=== PATIENT | male | born 1995 | race Caucasian/White ===

== ENCOUNTER 2020-09-03 10:08 | Emergency (ER) | payer SELFPAY ==
[2020-09-03 10:09] VITALS: BP 127/85; PULSE 92; RESP 18; TEMP 37; O2SAT 100; BMI 25.2
--- NOTE | 2020-09-03 10:14 | XRR_ITS ---
PROCEDURE INFORMATION: Exam: XR Chest Exam date and time: 09/03/2020 10:20 AM Age: 25 years old Clinical indication: Chest pressure; Patient HX: Chest pain TECHNIQUE: Imaging protocol: XR of the chest. Views: 1 view. COMPARISON: No relevant prior studies available. FINDINGS: Lungs: Lungs are clear bilaterally. Pleural spaces: No pleural effusion. No pneumothorax. Heart/Mediastinum: The cardiac silhouette and mediastinal contours are unremarkable. Bones/joints: Unremarkable for age. XR/XR chest 1V portable [id number] IMPRESSION: No acute cardiopulmonary process.
--- NOTE | 2020-09-03 10:25 | ED_ITS ---
HPI - Anxiety General: Chief Complaint: Anxiety Stated Complaint: CHEST PAIN Time Seen by Provider: 09/03/20 10:08 History of Present Illness: HPI narrative: 5-year-old male who was at work he began has some chest discomfort he was breathing rapidly severe tachypnea when EMS picked him up he is also having some pedal and hand muscular contractions he was given Ativan in the field for much all the symptoms resolved he has some mild chest discomfort with deep inhalation he denies any fever sweats chills no productive cough. MD complaint: anxiety and shortness of breath Onset (ago): minute(s) Symptoms: dyspnea, extremity numbness/tingling, sense of impending doom and muscle cramps Severity: moderate Quality: intermittent and improving Place: work Provoking factors: work/job stress Relieving factors: medication Associated symptoms: Reports chest pain; Deny anorexia, chills, confusion, diaphoresis, fever(s), headache(s), malaise, nausea, palpitations, short of breath, syncope, vomiting or weakness Review of Systems Const: Denies: fever(s), chills, malaise or diaphoresis ENMT: Denies: throat pain, ear or mastoid pain, nasal discharge or nasal congestion Card: Reports: chest pain; Denies: palpitations or syncope Resp: Denies: dyspnea, productive cough or non-productive cough GI: Denies: nausea or vomiting : Denies: flank pain, dysuria, urinary frequency or urinary urgency Skin/Breast: Denies: rash or pruritus Neuro: Denies: headache(s) or confusion Physical Exam Const: COMMON NORMALS: no acute distress GENERAL APPEARANCE: cooperative and comfortable ORIENTATION/CONSCIOUSNESS: Yes awake, Yes oriented to person, Yes oriented to place and Yes oriented to time HENMT: COMMON NORMALS: normocephalic, atraumatic, hearing grossly normal bilaterally and external ears normal HEAD & SCALP: normocephalic and atraumatic EXTERNAL EAR: Yes external ears normal Neck/C-Spine: COMMON NORMALS: no JVD Resp: COMMON NORMALS: normal respiratory effort, No retractions, No use of accessory muscles and clear to auscultation bilaterally AUSCULTATION: clear to auscultation bilaterally Cardio: COMMON NORMALS: no JVD, regular rate, regular rhythm and No murmurs present (Cardio) RATE: regular rate RHYTHM: regular rhythm GI: COMMON NORMALS: Soft to palpation and No hepatosplenomegaly present AUSCULTATION: Yes normoactive bowel sounds PALPATION: Yes Soft to palpation, No Tenderness to palpation present (GI), No Guarding due to palpation present (GI) and Yes No hepatosplenomegaly present Extremity: COMMON NORMALS: normal to inspection, capillary refill normal, no clubbing, cyanosis or edema, no calf tenderness and no pedal edema Neuro: SENSORIUM/ORIENTATION: Yes oriented to person, Yes oriented to place and Yes oriented to time Skin: COMMON NORMALS: no rashes or lesions noted GENERAL SKIN EXAM: no rashes or lesions noted Course Vital Signs: Vital signs: Vital Signs Temperature 98.6 F 09/03/20 12:01 Pulse Rate 92 09/03/20 10:09 Respiratory Rate 18 09/03/20 12:01 Blood Pressure 127/85 09/03/20 10:09 Pulse Oximetry 100 09/03/20 12:01 MDM - Anxiety MDM Narrative: Medical decision making narrative: Patient parameters all the time he arrived here much improved now on exam is unremarkable. EKG is unremarkable we will go ahead and discharge the patient home he is somewhat sedated from the Ativan he states he feels much better he has no further symptoms did discuss here whether and reviewing history from the EMT crew, it sounds like he was hyperventilating got some spasms in his. hands and feet those have all resolved recheck if has problems. Lab Data: Labs: Lab Results 09/03/20 09/03/20 Range/Units 10:40 10:40 WBC 7.3 (4.0-10.0) 10^3/ uL RBC 4.67 (4.1-5.3) 10^6/u L Hgb 13.9 (11.7-16.6) g/dL Hct 41.2 L (42.0-52.0) % MCV 88.2 (80-94) fL MCH 29.8 (28.0-34.0) pg MCHC 33.7 (30.0-36.0) g/dL RDW 13.0 (12.1-15.1) % Plt Count 211 (130-400) 10^3/c mm MPV 10.3 (7.4-10.4) fL Neut % (Auto) 75.1 % Lymph % (Auto) 14.7 % [place] % (Auto) 7.9 % Eos % (Auto) 1.5 % Baso % (Auto) 0.4 % Neut # (Auto) 5.50 (1.8-7.7) 10^3/u L Lymph # (Auto) 1.1 (0.8-4.8) 10^3/u L [place] # (Auto) 0.6 (0.2-0.9) 10^3/u L Eos # (Auto) 0.1 (0.0-0.8) 10^3/u L Baso # (Auto) 0.0 (0.0-0.1) 10^3/u L Nucleated RBC % (a uto) 0 % Nucleated RBCs # 0.0 /100WBC Sodium 136 (136-145) mmol/L Potassium 3.7 (3.5-5.1) mmol/L Chloride 100 (98-107) mmol/L Carbon Dioxide 26 (22-29) mmol/L Anion Gap 13.7 (5-19) BUN 12 (6-20) mg/dL Creatinine 0.9 (0.7-1.2) mg/dL GFR Calculation 103.7 (90-130) mL/min Glucose 92 (65-115) mg/dL Calculated Osmolal ity 281 L (285-295) mOsm/k g Calcium 9.0 (8.5-10.5) mg/dL Discharge Plan Discharge Patient Disposition: Home Clinical Impression: Acute anxiety, Hyperventilation Condition: Stable Prescriptions: No Action Ativan 0.5 mg tablet 0.5 mg PO Q8H PRN (Reason: anxiety) Qty: 7 RF: 0 Advil 200 mg Tablet 200 - 400 mg PO Q6H PRN (Reason: Pain) RF: 0 Discharge Orders: Discharge ED (Routine); Ordered 09/03/20 Ordered By: Tahir Song Discharge Diet: Usual diet Discharge Activity: Resume usual activity Patient Instructions: Opioid Safety Coding Level of Care Code ED Locomotive Pipe Fitter for Damien Fwd Exam Comprehensive
[2020-09-03 10:44] LABS: Basophils % 0.4 %; Eosinophils # 0.1 10^3/uL (0.0-0.8); Eosinophils % 1.5 %; Hematocrit 41.2 % (42.0-52.0); Hemoglobin 13.9 g/dL (11.7-16.6); Lymphocytes # 1.1 10^3/uL (0.8-4.8); Lymphocytes % 14.7 %; Mean Corpuscular HGB Conc 33.7 g/dL (30.0-36.0); Mean Corpuscular Hemoglobin 29.8 pg (28.0-34.0); Mean Corpuscular Volume 88.2 fL (80-94); Mean Platelet Volume 10.3 fL (7.4-10.4); Monocytes # 0.6 10^3/uL (0.2-0.9); Monocytes % 7.9 %; Neutrophils % 75.1 %; Nucleated Red Blood Cells % 0 %; Platelet Count 211 10^3/cmm (130-400); Red Blood Count 4.67 10^6/uL (4.1-5.3); White Blood Count 7.3 10^3/uL (4.0-10.0)
[2020-09-03 11:04] LABS: Blood Urea Nitrogen 12 mg/dL (6-20); Carbon Dioxide 26 mmol/L (22-29); Chloride 100 mmol/L (98-107); Glomerular Filtration Rate 103.7 mL/min (90-130); Glucose 92 mg/dL (65-115); Osmolality Calculated 281 mOsm/kg (285-295); Sodium 136 mmol/L (136-145)
[2020-09-03 11:06] LABS: Anion Gap 13.7 (5-19); Potassium 3.7 mmol/L (3.5-5.1)
[2020-09-03 12:01] VITALS: RESP 18; TEMP 37; O2SAT 100
== END 2020-09-03 12:01 | disposition home or self-care (01) ==
PROVIDERS: Emergency Provider Family Medicine
DX: F41.9 Anxiety disorder, unspecified (principal); R06.4 Hyperventilation
CPT/HCPCS: 71045; 80048; 85025; 99282

== ENCOUNTER 2020-09-04 18:33 | Emergency (ER) | payer SELFPAY ==
--- NOTE | 2020-09-04 18:48 | ECG_ITS ---
[facility] Test Date: 2020-09-04 Pat Name: Magnus Campbell Department: Room: Gender: Male Senior Revenue Accountant: : 1995 Requested By: Celia Grijalva Order Number: [id number] Lemus MD: Chelsea Vargas M.D. Measurements Intervals [place] Rate: 107 P: 84 TN: 119 QRS: 77 QRSD: 90 T: 55 QT: 327 QTc: 438 Interpretive Statements SINUS TACHYCARDIA WITH SHORT TN INTERVAL POSSIBLE LEFT ATRIAL ENLARGEMENT [-0.1mV P WAVE IN V1/V2] ABNORMAL RHYTHM ECG No previous ECG available for comparison Electronically Signed On 09-04-2020 21:03:44 CDT by Chelsea Vargas M.D. [email or web address] [email or web address]/[id number]
--- NOTE | 2020-09-04 18:48 | XRR_ITS ---
PROCEDURE INFORMATION: Exam: XR Chest Exam date and time: 09/04/2020 6:48 PM Age: 25 years old Clinical indication: Pain; Right-sided; Additional info: Cp TECHNIQUE: Imaging protocol: XR of the chest. Views: 1 view. COMPARISON: CR (CHEST, ) 09/03/2020 10:20 AM FINDINGS: Lungs: Unremarkable. No consolidation. Pleural spaces: Unremarkable. No pleural effusion. No pneumothorax. Heart/Mediastinum: Unremarkable. No cardiomegaly. Bones/joints: Unremarkable. XR/XR chest 1V portable [id number] IMPRESSION: No acute findings.
[2020-09-04 19:17] VITALS: BP 152/87; PULSE 102; RESP 30; TEMP 36.9; O2SAT 100; BMI 25.8
--- NOTE | 2020-09-04 19:24 | CTR_ITS ---
PROCEDURE INFORMATION: Exam: CT Head Without Contrast Exam date and time: 09/04/2020 7:24 PM Age: 25 years old Clinical indication: Numbness / parasthesia; Bilateral; Patient HX: C/O facial and extremity numbness; Additional info: Headache TECHNIQUE: Imaging protocol: Computed tomography of the head without contrast. Radiation optimization: All CT scans at this facility use at least one of these dose optimization techniques: automated exposure control; mA and/or kV adjustment per patient size (includes targeted exams where dose is matched to clinical indication); or iterative reconstruction. COMPARISON: No relevant prior studies available. RADIATION DOSE METRICS: Total DLP (mGy-cm): 862.8 FINDINGS: Brain: Normal. No hemorrhage. Unremarkable white matter. No mass effect. Cerebral ventricles: No ventriculomegaly. Paranasal sinuses: Visualized sinuses are unremarkable. No fluid levels. Mastoid air cells: Visualized mastoid air cells are well aerated. Bones/joints: Unremarkable. No acute fracture. Soft tissues: Unremarkable. CT/CT head wo con* [id number] IMPRESSION: No acute intracranial abnormality. Radiation Dose CTDIVOL = (mGy): DLP = 862.8 (mGy-cm)
[2020-09-04] MEDS: sodium chloride 0.9% 1,000 ML 999 ML IV (19:32)
[2020-09-04] MEDS: LORazepam 2 mg/mL INJ 1 mL 1 MG IVP (19:32)
[2020-09-04 19:41] LABS: Basophils # 0.1 10^3/uL (0.0-0.1); Basophils % 0.5 %; Eosinophils # 0.2 10^3/uL (0.0-0.8); Eosinophils % 1.8 %; Hematocrit 45.3 % (42.0-52.0); Hemoglobin 15.2 g/dL (11.7-16.6); Lymphocytes # 3.1 10^3/uL (0.8-4.8); Lymphocytes % 28.7 %; Mean Corpuscular HGB Conc 33.6 g/dL (30.0-36.0); Mean Corpuscular Hemoglobin 29.2 pg (28.0-34.0); Mean Corpuscular Volume 86.9 fL (80-94); Mean Platelet Volume 10.9 fL (7.4-10.4); Monocytes # 0.8 10^3/uL (0.2-0.9); Monocytes % 6.9 %; Neutrophils # 6.75 10^3/uL (1.8-7.7); Neutrophils % 61.7 %; Nucleated Red Blood Cells % 0 %; Platelet Count 264 10^3/cmm (130-400); Red Blood Count 5.21 10^6/uL (4.1-5.3); Red Cell Distribution Width 13.1 % (12.1-15.1); White Blood Count 10.9 10^3/uL (4.0-10.0)
[2020-09-04 19:57] LABS: Troponin(5th) Baseline 6 ng/L (0-15)
[2020-09-04 20:00] LABS: Alanine Aminotransferase 15 U/L (0-41); Alkaline Phosphatase 65 IU/L (40-130); Anion Gap 20.2 (5-19); Aspartate Amino Transferase 18 U/L (0-40); Blood Urea Nitrogen 18 mg/dL (6-20); Calcium 9.9 mg/dL (8.5-10.5); Carbon Dioxide 22 mmol/L (22-29); Chloride 100 mmol/L (98-107); Creatine Phosphokinase 83 U/L (39-308); Globulin 2.5 g/dL (1.3-4.6); Glomerular Filtration Rate 103.7 mL/min (90-130); Glucose 100 mg/dL (65-115); Osmolality Calculated 288 mOsm/kg (285-295); Potassium 4.2 mmol/L (3.5-5.1); Sodium 138 mmol/L (136-145); Thyroid Stimulating Hormone 1.94 uIU/mL (0.27-4.20); Total Bilirubin 0.3 mg/dL (0.15-1.2); Total Protein 7.5 g/dL (6.6-8.7)
[2020-09-04 20:02] LABS: Alcohol Level < 10 mg/dL (0-10)
[2020-09-04 20:27] LABS: Add Urine Microscopic? NO; Charge for UA Resulting for Rev
[2020-09-04 20:28] LABS: Lactic Sepsis W/Reflex 1.9 mmol/L (0.5-2.2)
[2020-09-04 20:29] LABS: Erythrocyte Sedimentation Rate 8 mm/hr (0-10)
[2020-09-04 20:33] LABS: Bilirubin Urine Neg (Negative); Blood Urine Neg (Negative); Glucose Urine UA Norm (Normal); Ketones Urine Negative (Negative); Leukocyte Esterase Urine Negative (Negative); Nitrate Urine Negative (Negative); Protein Urine Neg (Negative); Sulfosalicylic Acid Urine Negative (Negative); Urine Appearance Clear (CLEAR); Urine Color Straw (Yellow); Urobilinogen Urine Norm (Negative); pH Urine 8 (5-7)
[2020-09-04 20:38] LABS: Amphetamines Screen Urine Negative (Negative); Barbiturates Screen Urine Negative (Negative); Benzodiazepines Screen Urine Negative (Negative); Cocaine Screen Urine Negative (Negative); Opiate Screen Urine Negative (Negative); PCP Screen Urine Negative (Negative); THC Screen Urine Negative (Negative)
[2020-09-04 21:51] LABS: Troponin 5 2HR Delta 0 ABS# (0-10)
[2020-09-04 22:15] VITALS: BP 114/66; PULSE 80; RESP 14; O2SAT 100
--- NOTE | 2020-09-04 22:40 | ED_ITS ---
HPI - Chest Pain General: Chief Complaint: Chest Pain Stated Complaint: CP Time Seen by Provider: 09/04/20 19:27 History of Present Illness: HPI narrative: Is a 25-year-old male who comes to the ER with identical complaint of yesterday. He says he has left-sided chest pain, tingling in his face and fingers, and spasms to his arms and legs. Yesterday he was seen in and given IV Ativan which improved his symptoms and discharged with anxiety. Today he complains of identical symptoms. 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 He has no previous medical problems. Takes no medications regularly. No allergies. MD complaint: chest pain Onset (ago): hour(s) (2) Timing of current episode: constant Prior episodes: Yes Onset: during rest and during exertion Pain location: left chest Pain radiation: none Severity: moderate Quality: sharp Relieving factors: nothing and other (IV Ativan) Exacerbating factors: nothing and stress Associated symptoms: Reports no associated symptoms; Deny abdominal pain, dyspnea or palpitations Review of Systems General: Reports: 10 or more systems reviewed and unremarkable except in HPI and below Const: Denies: fatigue Eyes: Denies: change in vision, blurry vision or eye redness ENMT: Denies: throat pain, swelling of lips/tongue, ear or mastoid pain or nasal congestion Card: Reports: chest pain; Denies: palpitations, irregular heart rhythm, edema, dyspnea on exertion or orthopnea Resp: Denies: dyspnea, productive cough or non-productive cough GI: Denies: abdominal pain, diarrhea or GI cramping : Denies: flank pain, urinary frequency or urinary urgency Musc: Reports: other (Cramps in the arms and legs); Denies: neck pain, back pain, extremity pain, joint pain, joint redness, limited range of motion or muscle weakness Skin/Breast: Denies: rash, pruritus, erythema, skin pain or skin tenderness Neuro: Denies: headache(s), numbness in extremities, weakness in extremities, sensory changes, difficulty walking, dizziness, confusion or Slurred speech present Psych: Denies: anxiety or depression Endo: Denies: polyuria All/Imm: Denies: urticaria, throat swelling or tongue swelling Physical Exam Narrative: EXAM NARRATIVE: The patient is complaining of left chest pain, paresthesias to his fingers and face. He appears anxious. He has cramps in his forearms and legs. He is able to straighten his arms and legs but then forcibly cramps them himself. Const: COMMON NORMALS: average body habitus, patient oriented x3, no limitations, healthy appearing, alert and well nourished GENERAL APPEARANCE: cooperative, well kempt, well developed and anxious ORIENTATION/CONSCIOUSNESS: Yes awake, Yes oriented to person, Yes oriented to place and Yes oriented to time HENMT: COMMON NORMALS: normocephalic, external ears normal and Normal external nose present HEAD & SCALP: normal to inspection and normocephalic NOSE: Normal external nose present EXTERNAL EAR: Yes external ears normal MOUTH: Normal oral and palatal mucosa present THROAT: posterior oropharynx normal Eye: COMMON NORMALS: Equal, round and reactive pupils present and EOMs intact bilaterally GENERAL EYE: appearance normal, both eyes and all related structures PUPIL: Yes Equal, round and reactive pupils present Neck/C-Spine: COMMON NORMALS: full ROM, no lymphadenopathy, no meningeal signs and no JVD GENERAL: Yes normal visual inspection Lymph: LYMPHATIC: no lymphadenopathy noted Chest: COMMONS NORMALS: normal inspection of the chest and normal palpation of entire chest wall Resp: COMMON NORMALS: normal respiratory effort, No retractions, No use of accessory muscles, clear to auscultation bilaterally and percussion normal EFFORT & INSPECTION: Yes able to speak in complete sentences AUSCULTATION: clear to auscultation bilaterally PERCUSSION: percussion normal Cardio: COMMON NORMALS: no JVD, regular rhythm, S1 normal heart sound present, S2 normal heart sound present and Peripheral pulses 2+ throughout RATE: tachycardic RHYTHM: regular rhythm HEART SOUNDS: S1 normal heart sound present and S2 normal heart sound present PERIPHERAL PULSES: Peripheral pulses 2+ throughout GI: COMMON NORMALS: Normal to inspection, nondistended, normoactive bowel sounds present, Soft to palpation, non-tender and no masses INSPECTION: Yes normal to inspection PALPATION: Yes Soft to palpation : COMMON NORMALS: Yes no CVA tenderness BLADDER/KIDNEY EXAM: Yes no CVA tenderness Back/Pelvis: COMMON NORMALS: no CVA tenderness, thoracic and lumbar spine normal to inspection, no thoracic nor lumbar tenderness and thoraco-lumbar ROM normal Extremity: COMMON NORMALS: normal to inspection, full ROM, capillary refill normal, no joint enlargement and no pedal edema NARRATIVE EXTREMITY EXAM: He has cramps in his forearms and legs. He is able to straighten his arms and legs but then forcibly cramps them himself. GENERAL: Yes normal exam except as noted Neuro: COMMON NORMALS: patient oriented x3, CN's II-XII intact bilaterally, moves all extremities, no focal motor deficits, no sensory deficits noted and gait normal SENSORIUM/ORIENTATION: Yes alert, Yes oriented to person, Yes oriented to place and Yes oriented to time MENINGEAL SIGNS: Yes no meningeal signs Psych: COMMON NORMALS: mental status grossly normal, Normal thought process present, cooperative, normal affect and speech normal APPEARANCE: Yes well ke mpt ATTITUDE: Yes calm SPEECH: Yes normal speech MOOD & AFFECT: Yes anxious THOUGHT PROCESS: Normal thought process present Skin: COMMON NORMALS: no rashes or lesions noted GENERAL SKIN EXAM: no rashes or lesions noted Course Vital Signs: Vital signs: Vital Signs Temperature 98.4 F 09/04/20 19:17 Pulse Rate 80 09/04/20 22:15 Respiratory Rate 14 09/04/20 22:15 Blood Pressure 114/66 09/04/20 22:15 Pulse Oximetry 100 09/04/20 22:15 MDM - Chest Pain MDM Narrative: Medical decision making narrative: The patient comes in to the ER with the same complaint as yesterday. He is complaining of left-sided chest pain, tingling to his fingers and face, and cramps in his forearms and calves. He is able to straighten his arms and I can physically relax and stretch his muscles but then he consciously cramps them back up. He was given IV Ativan and fluids and he says the Ativan instantly relieves his symptoms. I did a large work-up and the blood work was all negative and head CT normal. Chest x-ray normal as well. Troponins normal and EKG normal. The cause of his symptoms are unclear but most likely related to anxiety. I recommended he follow-up with a primary care physician in a couple days and placed a case management referral to help him get an appointment. I also discharged him with Ativan tablets to help with his symptoms at home. Return to the ER with worsening symptoms at any time. He understands and will follow the plan Lab Data: Labs: Lab Results 09/04/20 09/04/20 09/04/20 Range/Units 19:15 19:15 19:15 WBC 10.9 H (4.0-10.0) 10^3/ uL RBC 5.21 (4.1-5.3) 10^6/u L Hgb 15.2 (11.7-16.6) g/dL Hct 45.3 (42.0-52.0) % MCV 86.9 (80-94) fL MCH 29.2 (28.0-34.0) pg MCHC 33.6 (30.0-36.0) g/dL RDW 13.1 (12.1-15.1) % Plt Count 264 (130-400) 10^3/c mm MPV 10.9 H (7.4-10.4) fL Neut % (Auto) 61.7 % Lymph % (Auto) 28.7 % [place] % (Auto) 6.9 % Eos % (Auto) 1.8 % Baso % (Auto) 0.5 % Neut # (Auto) 6.75 (1.8-7.7) 10^3/u L Lymph # (Auto) 3.1 (0.8-4.8) 10^3/u L [place] # (Auto) 0.8 (0.2-0.9) 10^3/u L Eos # (Auto) 0.2 (0.0-0.8) 10^3/u L Baso # (Auto) 0.1 (0.0-0.1) 10^3/u L Nucleated RBC % (a uto) 0 % Nucleated RBCs # 0.0 /100WBC ESR (0-10) mm/hr Sodium 138 (136-145) mmol/L Potassium 4.2 (3.5-5.1) mmol/L Chloride 100 (98-107) mmol/L Carbon Dioxide 22 (22-29) mmol/L Anion Gap 20.2 H (5-19) BUN 18 (6-20) mg/dL Creatinine 0.9 (0.7-1.2) mg/dL GFR Calculation 103.7 (90-130) mL/min Glucose 100 (65-115) mg/dL Calculated Osmolal ity 288 (285-295) mOsm/k g Lactic Acid (0.5-2.2) mmol/L Calcium 9.9 (8.5-10.5) mg/dL Total Bilirubin 0.3 (0.15-1.2) mg/dL AST 18 (0-40) U/L ALT 15 (0-41) U/L Alkaline Phosphata se 65 (40-130) IU/L Creatine Kinase 83 (39-308) U/L Troponin T Baselin e 6 (0-15) ng/L Troponin T 120 Min [place] (0-15) ng/L Delta Troponin T (0-10) ABS# Total Protein 7.5 (6.6-8.7) g/dL Albumin 5.0 (3.5-5.2) g/dL Globulin 2.5 (1.3-4.6) g/dL TSH 1.94 (0.27-4.20) uIU/ mL Urine Color (Yellow) Urine Appearance (CLEAR) Urine pH (5-7) Ur Specific Gravit y (1.005-1.030) Urine Protein (Negative) Urine Glucose (UA) (Normal) Urine Ketones (Negative) Urine Blood (Negative) Urine Nitrate (Negative) Urine Bilirubin (Negative) Prot Sulfosalicyli c Acd (Negative) Urine Urobilinogen (Negative) mg/dL Ur Leukocyte Haritha ase (Negative) Urine Opiates Scre en (Negative) ng/mL Ur Barbiturates Sc reen (Negative) ng/mL Ur Phencyclidine S crn (Negative) ng/mL Ur Amphetamines Sc reen (Negative) ng/mL U Benzodiazepines Scrn (Negative) ng/mL Urine Cocaine Scre en (Negative) ng/mL U Marijuana (THC) Screen (Negative) ng/mL Ethyl Alcohol < 10 (0-10) mg/dL 09/04/20 09/04/20 09/04/20 Range/Units 19:15 20:00 20:10 WBC (4.0-10.0) 10^3/ uL RBC (4.1-5.3) 10^6/u L Hgb (11.7-16.6) g/dL Hct (42.0-52.0) % MCV (80-94) fL MCH (28.0-34.0) pg MCHC (30.0-36.0) g/dL RDW (12.1-15.1) % Plt Count (130-400) 10^3/c mm MPV (7.4-10.4) fL Neut % (Auto) % Lymph % (Auto) % [place] % (Auto) % Eos % (Auto) % Baso % (Auto) % Neut # (Auto) (1.8-7.7) 10^3/u L Lymph # (Auto) (0.8-4.8) 10^3/u L [place] # (Auto) (0.2-0.9) 10^3/u L Eos # (Auto) (0.0-0.8) 10^3/u L Baso # (Auto) (0.0-0.1) 10^3/u L Nucleated RBC % (a uto) % Nucleated RBCs # /100WBC ESR 8 (0-10) mm/hr Sodium (136-145) mmol/L Potassium (3.5-5.1) mmol/L Chloride (98-107) mmol/L Carbon Dioxide (22-29) mmol/L Anion Gap (5-19) BUN (6-20) mg/dL Creatinine (0.7-1.2) mg/dL GFR Calculation (90-130) mL/min Glucose (65-115) mg/dL Calculated Osmolal ity (285-295) mOsm/k g Lactic Acid 1.9 (0.5-2.2) mmol/L Calcium (8.5-10.5) mg/dL Total Bilirubin (0.15-1.2) mg/dL AST (0-40) U/L ALT (0-41) U/L Alkaline Phosphata se (40-130) IU/L Creatine Kinase (39-308) U/L Troponin T Baselin e (0-15) ng/L Troponin T 120 Min [place] (0-15) ng/L Delta Troponin T (0-10) ABS# Total Protein (6.6-8.7) g/dL Albumin (3.5-5.2) g/dL Globulin (1.3-4.6) g/dL TSH (0.27-4.20) uIU/ mL Urine Color Straw (Yellow) Urine Appearance Clear (CLEAR) Urine pH 8 H (5-7) Ur Specific Gravit y 1.010 (1.005-1.030) Urine Protein Neg (Negative) Urine Glucose (UA) Norm (Normal) Urine Ketones Negative (Negative) Urine Blood Neg (Negative) Urine Nitrate Negative (Negative) Urine Bilirubin Neg (Negative) Prot Sulfosalicyli c Acd Negative (Negative) Urine Urobilinogen Norm (Negative) mg/dL Ur Leukocyte Haritha ase Negative (Negative) Urine Opiates Scre en (Negative) ng/mL Ur Barbiturates Sc reen (Negative) ng/mL Ur Phencyclidine S crn (Negative) ng/mL Ur Amphetamines Sc reen (Negative) ng/mL U Benzodiazepines Scrn (Negative) ng/mL Urine Cocaine Scre en (Negative) ng/mL U Marijuana (THC) Screen (Negative) ng/mL Ethyl Alcohol (0-10) mg/dL 09/04/20 09/04/20 Range/Units 20:10 21:27 WBC (4.0-10.0) 10^3/ uL RBC (4.1-5.3) 10^6/u L Hgb (11.7-16.6) g/dL Hct (42.0-52.0) % MCV (80-94) fL MCH (28.0-34.0) pg MCHC (30.0-36.0) g/dL RDW (12.1-15.1) % Plt Count (130-400) 10^3/c mm MPV (7.4-10.4) fL Neut % (Auto) % Lymph % (Auto) % [place] % (Auto) % Eos % (Auto) % Baso % (Auto) % Neut # (Auto) (1.8-7.7) 10^3/u L Lymph # (Auto) (0.8-4.8) 10^3/u L [place] # (Auto) (0.2-0.9) 10^3/u L Eos # (Auto) (0.0-0.8) 10^3/u L Baso # (Auto) (0.0-0.1) 10^3/u L Nucleated RBC % (a uto) % Nucleated RBCs # /100WBC ESR (0-10) mm/hr Sodium (136-145) mmol/L Potassium (3.5-5.1) mmol/L Chloride (98-107) mmol/L Carbon Dioxide (22-29) mmol/L Anion Gap (5-19) BUN (6-20) mg/dL Creatinine (0.7-1.2) mg/dL GFR Calculation (90-130) mL/min Glucose (65-115) mg/dL Calculated Osmolal ity (285-295) mOsm/k g Lactic Acid (0.5-2.2) mmol/L Calcium (8.5-10.5) mg/dL Total Bilirubin (0.15-1.2) mg/dL AST (0-40) U/L ALT (0-41) U/L Alkaline Phosphata se (40-130) IU/L Creatine Kinase (39-308) U/L Troponin T Baselin e (0-15) ng/L Troponin T 120 Min [place] 6.00 (0-15) ng/L Delta Troponin T 0 (0-10) ABS# Total Protein (6.6-8.7) g/dL Albumin (3.5-5.2) g/dL Globulin (1.3-4.6) g/dL TSH (0.27-4.20) uIU/ mL Urine Color (Yellow) Urine Appearance (CLEAR) Urine pH (5-7) Ur Specific Gravit y (1.005-1.030) Urine Protein (Negative) Urine Glucose (UA) (Normal) Urine Ketones (Negative) Urine Blood (Negative) Urine Nitrate (Negative) Urine Bilirubin (Negative) Prot Sulfosalicyli c Acd (Negative) Urine Urobilinogen (Negative) mg/dL Ur Leukocyte Haritha ase (Negative) Urine Opiates Scre en Negative (Negative) ng/mL Ur Barbiturates Sc reen Negative (Negative) ng/mL Ur Phencyclidine S crn Negative (Negative) ng/mL Ur Amphetamines Sc reen Negative (Negative) ng/mL U Benzodiazepines Scrn Negative (Negative) ng/mL Urine Cocaine Scre en Negative (Negative) ng/mL U Marijuana (THC) Screen Negative (Negative) ng/mL Ethyl Alcohol (0-10) mg/dL Discharge Plan Discharge Patient Disposition: Home Clinical Impression: Acute anxiety, Cramp in muscle, Acute dehydration Condition: Stable Prescriptions: New Ativan 0.5 mg tablet 0.5 mg PO Q8H PRN (Reason: anxiety) Qty: 7 RF: 0 No Action Advil 200 mg Tablet 200 - 400 mg PO Q6H PRN (Reason: Pain) RF: 0 Discharge Orders: Discharge ED (Routine); Ordered 09/04/20 Ordered By: Avi Harrington Discharge Diet: Advance as tolerated Discharge Activity: Resume usual activity Patient Instructions: Dehydration (ED), Muscle Cramp (ED), Anxiety (ED), Opioid Safety Activity Restrictions/Additional Instructions: You have cramps of unclear cause but likely related to dehydration, and anxiety. We have given you Ativan and your symptoms have greatly improved. Please take the Ativan when you are feeling the symptoms at home and do not mix with drugs, alcohol, nor operate machinery including at work while taking this medication. That also includes driving. Return to the ER with worsening symptoms at any time otherwise follow-up with your primary care physician in a couple days. I have placed a case management consult to help you get a appointment with a primary care physician if you do not have one. They should be calling you tomorrow to help get an appointment scheduled. Coding Level of Care Code ED Metal Filer for Damien Sandoval
--- NOTE | 2020-09-05 15:20 | DCPLANNER ---
Addendum entered by Jyoti Castaneda 09/05/20 15:48: software engineering associate manager called patient, and was able to give patient the appointment information. Original Note: software engineering associate manager had message to speak with patient about getting established with a primary care physician. software engineering associate manager spoke with patient, he stated that he would like help in getting established with a provider. software engineering associate manager called the [facility], spok with Ellie, gave clinic patients information. A follow up appointment was scheduled for , September 08, 2020 at 10:20 with Maine Shrestha. software engineering associate manager called patient to give patient the appointment information. software engineering associate manager was unable to speak with patient or give patient the appointment information, does not have a voicemail set up at this time.
--- NOTE | 2020-10-17 07:36 | DCPLANNER ---
Patient had a follow up appointment scheduled for 09.08.20 with Maine Shrestha at [facility] - patient did attend appointment.
== END 2020-09-04 22:16 | disposition home or self-care (01) ==
PROVIDERS: Emergency Provider Family Medicine
DX: F41.9 Anxiety disorder, unspecified (principal); R25.2 Cramp and spasm; E86.0 Dehydration
CPT/HCPCS: 36415; 70450; 71045; 80053; 80306; 80307; 81003; 82550; 83605; 84443; 84484; 85025; 85651; 93005; 96361; 96374; 99284; J2060; J7030